=== PATIENT | female | born 1945 | race Two or more races ===

== ENCOUNTER 2024-07-29 13:08 | Emergency (ER) | payer OTHER ==
[~2024-07-29] VITALS: Ht 165.1 cm; Wt 83.9 kg
[2024-07-29] MEDS ORDERED: NEURONTIN300 MG (13:36)
[2024-07-29] MEDS ORDERED: COZAAR50 MG (13:36)
== END 2024-07-29 15:41 | disposition home or self-care (01) ==
LOC: ER 13:10
DX: S92.301A Fracture of unspecified metatarsal bone(s), right foot, initial encounter for closed fracture (principal); S92.901A Unspecified fracture of right foot, initial encounter for closed fracture; X58.XXXA Exposure to other specified factors, initial encounter; Y93.89 Activity, other specified; Y92.89 Other specified places as the place of occurrence of the external cause; Y99.8 Other external cause status; I10 Essential (primary) hypertension; Z88.0 Allergy status to penicillin; Z91.041 Radiographic dye allergy status